=== PATIENT | male | born 1945 | race Caucasian/White ===

== ENCOUNTER 2022-06-22 12:16 | Outpatient (CLI) | payer OTHER ==
[2022-06-22] VITALS (17 sets, daily range): BP systolic 80–170; BP diastolic 32–92
== END 2022-06-22 23:59 | disposition home or self-care (01) ==
LOC: CARD DIAG 12:16
PROVIDERS: ATTEND Internal Medicine
DX: R55 Syncope and collapse (principal)
CPT/HCPCS: 93660